=== PATIENT | female | born 1930 | race Hispanic/Latino ===

== ENCOUNTER 2017-11-04 18:55 | Inpatient (IN) | payer MEDICARE ==
[2017-11-04 19:19] VITALS: BMI 28.3
--- NOTE | 2017-11-04 19:42 | ED PDOC ---
Arrival/HPI - General Chief Complaint: Chest Pain Time Seen by Provider: 11/04/17 19:07 Historian: Patient - History of Present Illness Narrative History of Present Illness (Text): you were treated in the ED today for cad/mi hx with coumadin use, having dizziness and generalized chest pain for 1 day but otherwise without any nausea/ vomiting/headache/dizziness/difficulty breathing/abdomen pain/numbness/tingling/ loss of limb function/pain with urination/travel/prior blood clots/cancer hx 11/04/17 19:42 Time/Duration: 24 hours Symptom Onset: Gradual Symptom Course: Intermittent Quality: Aching Severity Level: 1 Activities at Onset: Rest Context: Sitting Past Medical History - Provider Review Nursing Documentation Reviewed: Yes - Travel History Have you recently traveled outside [place] w/in the past 3 mons?: No - Infectious Disease Hx of Infectious Diseases: None - Cardiac Hx Circulatory Problems: Yes Hx Hypertension: Yes Hx Pacemaker: No - Hematological/Oncological Hx Blood Transfusions: No - Musculoskeletal/Rheumatological Hx Musculoskeletal Disorders: Yes - Gastrointestinal Hx Gastroesophageal Reflux: Yes - Psychiatric Hx Substance Use: No - Surgical History Other/Comment: IVC filter rt leg - Anesthesia Hx Anesthesia: Yes Hx Anesthesia Reactions: No Hx Malignant Hyperthermia: No Family/Social History - Physician Review Nursing Documentation Reviewed: Yes Family/Social History: No Known Family HX Smoking Status: Never Smoked Hx Alcohol Use: No Hx Substance Use: No Allergies/Home Meds Allergies/Adverse Reactions: Allergies No Known Allergies Allergy (Verified 07/19/14 12:32) Home Medications: Home Meds Medication Instructions Recorded Confirmed Travoprost [Travatan 2.5 ml] 1 drop OU DAILY 07/19/14 11/04/17 Vitamin D 2,000 iu PO DAILY 07/19/14 11/04/17 Warfarin [Coumadin] 5 mg PO DAILY 07/19/14 11/04/17 Omeprazole 20 mg PO DAILY 11/04/17 11/04/17 Pravastatin Sodium [Pravachol] 10 mg PO DAILY 11/04/17 11/04/17 Review of Systems - Review of Systems Constitutional: Normal Eyes: Normal ENT: Normal Respiratory: Normal Cardiovascular: Chest Pain Gastrointestinal: Normal Genitourinary Female: Normal Musculoskeletal: Normal Skin: Normal Neurological: Dizziness Endocrine: Normal Hemo/Lymphatic: Normal Psychiatric: Normal Physical Exam Vital Signs Reviewed: Yes Vital Signs Temp Pulse Resp BP Pulse Ox 11/04/17 21:50 98.1 F 174/68 H 11/04/17 19:30 160/58 H 11/04/17 19:13 73 16 98 Temperature: Afebrile Pulse: Regular Respiratory Rate: Normal Appearance: Positive for: Well-Appearing, Non-Toxic, Comfortable Pain Distress: None Mental Status: Positive for: Alert and Oriented X 3 - Systems Exam Head: Present: Atraumatic, Normocephalic Pupils: Present: PERRL Extroacular Muscles: Present: EOMI Conjunctiva: Present: Normal Ears: Present: Normal Mouth: Present: Moist Mucous Membranes Pharnyx: Present: Normal Nose (External): Present: Atraumatic Nose (Internal): Present: Normal Inspection Neck: Present: Normal Range of Motion Respiratory/Chest: Present: Clear to Auscultation, Good Air Exchange Cardiovascular: Present: Regular Rate and Rhythm Abdomen: No: Tenderness, Distention, Normal Bowel Sounds, Peritoneal Signs, Rebound, Guarding, McBurney's Point Tender, Rovsing's Sign Present, Hernias, Feeding Tubes, Ostomy Tubes, Mass/Organomegaly, Scars, Other Back: Present: Normal Inspection Upper Extremity: Present: Normal Inspection Lower Extremity: Present: Normal Inspection Neurological: Present: GCS=15, CN II-XII Intact, Speech Normal, Motor Func Grossly Intact Skin: Present: Warm, Normal Color Psychiatric: Present: Alert, Oriented x 3, Normal Insight, Normal Concentration Medical Decision Making ED Course and Treatment: you were treated in the ED today for cad/mi hx with coumadin use right lower ext ?, having dizziness with some positional changes and generalized chest pain for off and on somewhat chronically and saw Dr. Mccray but otherwise without any nausea/vomiting/headache/dizziness/difficulty breathing/abdomen pain/numbness/ tingling/loss of limb function/pain with urination. You were otherwise breathing easily, smiling and talking with your friend, good strength/sensation , clear lungs, no abdomen tenderness, skin pink, no fever temp 98.1, stable heart rate 73, stable breathing rate 16, excellent oxygen level 98% room air, elevated blood pressure 174/68 which we recommend repeat in 2-3 days primary care office to determine further treatment, you have blood tests no infection count 4.4, stable blood level hemoglobin 13/platelets 208, stable chemistry, heart blood test less than 0.01 negative, INR 2.44, urine test moderate leukocytes without pain with urination, radiology ct head no acute and chest xray mild vascular markings, ECG normal sinus rhythm, held aspirin as CT head pending, observation done in the ED with dizziness still and thus will admit for observation. 11/04/17 20:36 11/04/2017 21:[address] IMPRESSION: No acute intracranial abnormality. Dictator: Gabrielle Lancaster MD 11/04/17 21:35 11/04/17 21:44 11/04/17 21:46 11/04/17 21:59 d/w hospitalist Dr. Lang who stated consult Dr. Mccray and can admit to telemetry, Dr. Gandara covering and stated can put a consult in for the am and admit for observation at this time. Reassessment Condition: Re-examined, Improved - Lab Interpretations Lab Results: 11/04/17 20:00 11/04/17 20:00 Lab Results 11/04/17 20:41: Urine Color Yellow, Urine Appearance Sl cloudy, Urine pH 7.0, Ur Specific [place] 1.015, Urine Protein Negative, Urine Glucose (UA) Negative, Urine Ketones Negative, Urine Blood Negative, Urine Nitrate Negative, Urine Bilirubin Negative, Urine Urobilinogen 0.2, Ur Leukocyte Esterase Moderate H, Urine RBC Negative, Urine WBC 15 - 20, Ur Epithelial Cells 10 - 12, Urine Bacteria Mod 11/04/17 20:00: Sodium 143, Potassium 4.3, Chloride 106, Carbon Dioxide 27, Anion Gap 14, BUN 16, Creatinine 0.7, Est GFR ( Amer) > 60, Est GFR (Non- Af Amer) > 60, Random Glucose 126 H, Calcium 9.1, Magnesium 2.0, Total Bilirubin 0.7, AST 29, ALT 29, Alkaline Phosphatase 70, Lactate Dehydrogenase 590, Total Creatine Kinase 61, Troponin I < 0.01, NT-Pro-B Natriuret Pep 94.4, Total Protein 7.0, Albumin 4.1, Globulin 2.9, Albumin/Globulin Ratio 1.4 11/04/17 20:00: PT 28.3 H, INR 2.44 H, APTT 34.1 11/04/17 20:00: WBC 4.4 L, RBC 4.50, Hgb 13.1, Hct 38.6, MCV 85.8, MCH 29.1, MCHC 33.9, RDW 13.0, Plt Count 208, MPV 10.5, Gran % 73.9 H, Lymph % (Auto) 18.3 L, [place] % (Auto) 6.7 H, Eos % (Auto) 0.9 L, Baso % (Auto) 0.2, Gran # 3.22 , Lymph # (Auto) 0.8 L, [place] # (Auto) 0.3, Eos # (Auto) 0.0, Baso # (Auto) 0.01 I have reviewed the lab results: Yes - RAD Interpretation Radiology Orders: 11/04/17 19:37 HEAD W/O CONTRAST [CT] Stat CHEST PORTABLE [RAD] Stat Optical Manager: ED Physician (cxr mild vascular markings; similar 08/22/14) - EKG Interpretation Interpreted by ED Physician: Yes (NSR, RBBB) Type: 12 lead EKG - Medication Orders Current Medication Orders: Discontinued Medications Meclizine HCl (Antivert) 25 mg PO STAT STA Stop: 11/04/17 21:46 Disposition/Present on Arrival - Present on Arrival Any Indicators Present on Arrival: No History of DVT/PE: No History of Uncontrolled Diabetes: No Urinary Catheter: No History of Decub. Ulcer: No History Surgical Site Infection Following: None - Disposition Have Diagnosis and Disposition been Completed?: Yes Diagnosis: Dizziness Disposition: HOSPITALIZED Disposition Time: 21:50 Patient Plan: Admission, Telemetry Patient Problems: Current Active Problems Problem Status Onset Dizziness Acute Condition: STABLE Referrals: Miguelina Harmon MD [Primary Care Provider] - Follow up with primary Forms: [employer] (Spanish)
[2017-11-04 20:21] LABS: BASO # 0.01 K/mm3 (0.0-2.0); BASO % 0.2 % (0.0-3.0); EOS % 0.9 % (1.5-5.0); GRAN # 3.22 (1.4-6.5); GRAN % 73.9 % (50.0-68.0); HEMOGLOBIN 13.1 g/dL (12.0-16.0); LYMPH # 0.8 (1.2-3.4); LYMPH % 18.3 % (22.0-35.0); MEAN CELL VOLUME 85.8 fl (80.0-105.0); MEAN CORPUSCULAR HEMOGLOBIN 29.1 pg (25.0-35.0); MEAN CORPUSCULAR HGB CONC 33.9 g/dl (31.0-37.0); MEAN PLATELET VOLUME 10.5 fl (7.0-11.0); MONO # 0.3 (0.1-0.6); MONO % 6.7 % (1.0-6.0); RBC 4.5 10^6/uL (3.5-6.1); WHITE BLOOD COUNT 4.4 10^3/ul (4.5-11.0)
[2017-11-04 20:25] LABS: ALB/GLOB RATIO 1.4 (1.1-1.8); ALBUMIN 4.1 g/dL (3.0-4.8); CALCIUM 9.1 mg/dL (8.4-10.5); GFR AFRICAN-AMERICAN > 60; GFR NON-AFRICAN AMERICAN > 60; INR 2.44 (0.93-1.08); PARTIAL THROMBOPLASTIN TIME 34.1 Seconds (25.1-36.5); PROTHROMBIN TIME 28.3 SECONDS (9.4-12.5)
[2017-11-04 20:28] LABS: ALT/SGPT 29 U/L (7-56); AST/SGOT 29 U/L (14-36); BLOOD UREA NITROGEN 16 mg/dL (7-21)
[2017-11-04 20:35] LABS: B-TYPE NATRIURETIC PEPTIDE 94.4 pg/mL (0-450); TROPONIN I < 0.01 ng/mL
[2017-11-04 21:13] LABS: URINE BILIRUBIN NEGATIVE (NEGATIVE); URINE BLOOD NEGATIVE (NEGATIVE); URINE GLUCOSE (UA) NEGATIVE (NEGATIVE); URINE LEUKOCYTE ESTERASE MODERATE Leu/uL (NEGATIVE); URINE PROTEIN NEGATIVE mg/dL (<30 mg/dL); URINE UROBILINOGEN 0.2 E.U./dL (<1 E.U./dL)
[2017-11-04 21:16] LABS: URINE APPEARANCE SL CLOUDY (CLEAR); URINE COLOR YELLOW (YELLOW)
[2017-11-04 21:23] LABS: URINE BACTERIA MOD (NEG); URINE RBC NEGATIVE /hpf (0-2); URINE WBC 15 - 20 /hpf (0-6)
--- NOTE | 2017-11-04 21:26 | CT ---
EXAM: CT Head Without Intravenous Contrast EXAM DATE/TIME: 11/04/2017 7:37 PM CLINICAL HISTORY: 87 years old, female; Signs and symptoms; Dizziness; Additional info: 87yof, with dizziness TECHNIQUE: Axial computed tomography images of the head/brain without intravenous contrast. All CT scans at this facility use at least one of these dose optimization techniques: automated exposure control; mA and/or kV adjustment per patient size (includes targeted exams where dose is matched to clinical indication); or iterative reconstruction. Coronal and sagittal reformatted images were created and reviewed. COMPARISON: CT - HEAD W/O CONTRAST 2015-06-14 13:38 FINDINGS: Brain: There is mild prominence of sulci gyri and ventricles. There is no midline shift. There is decreased attenuation in periventricular white matter. There are old small lacunar infarcts in the basal ganglia. There is small punctate calcifications unchanged. There are no focal masses. There are no focal hemorrhages. Layton-white differentiation is visualized. Ventricles: See above Bones: Cranial vault is intact. Soft tissues: unremarkable Sinuses: There is no acute sinusitis. Ears and mastoids: Middle ears and mastoids are unremarkable. Orbits: Orbital contents are unremarkable. IMPRESSION: No acute intracranial abnormality
--- NOTE | 2017-11-04 22:53 | CP.PCM.HP ---
<Tristen Arroyo - Last Filed: 11/05/17 03:11> History of Present Illness - History of Present Illness History of Present Illness: 87 year old female with a past medical history of [place] x2(1992 and 2007), Pulmonary embolus( on Coumadin), DVT, and nephrolithiasis who comes in today complaining of dizziness that began this afternoon around 4p.m. The patient went for a check-up at Dr. Mccray's office and then returned home when she began to feel dizzy. She describes the sensation as feeling like she would lose her balance when walking. She also admits to the dizziness being more pronounced upon walking to the restroom. She reports also having some chest pain in association with the dizziness. It located on the left side of her chest with some radiation to the mid back. She describes it as a throbbing pain and rates it 5/10 when she has symptoms. She reports similar symptoms when she had her DVT and PE in the past which is why she ultimately came to the emergency room department. She denies losing consciousness or hitting her head. She denies any recent cold, abdominal pain, palpitations, fevers, cough, or chest pain at the time of the encounter, or any other complaints. PMD: Dr. Baker Cardiology: Dr. Mccray Past medical history: MIx2 (1992 and 2007), Pulmonary embolus, DVT, nephrolithiaisis Surgical history :Denies Allergies: Denies Medications: Coumadin 5mg PO Daily Social history: Former smoker (quit 40 years ago). Denies alcohol or illicit drug use. Lives alone in [place]. Present on Admission - Present on Admission Any Indicators Present on Admission: No Review of Systems - Constitutional Constitutional: absent: Daytime Sleepiness, Frequent Falls, Headache, Night Sweats, Snoring, Weakness - EENT Eyes: absent: Blurred Vision, Change in Vision, Discharge, Loss of Peripheral Vision, Sees Flashes, Loss of Vision Ears: Disequilibrium, Dizziness. absent: Ear Discharge Nose/Mouth/Throat: absent: Nasal Congestion, Nose Pain, Bleeding Gums, Dysphagia , Mouth Pain, Facial Pain - Cardiovascular Cardiovascular: Chest Pain. absent: Diaphoresis, Irregular Heart Rhythm, Leg Edema, Orthopnea, Palpitations, Paroxysmal Nocturnal Dyspnea, Pedal Edema, Syncope - Respiratory Respiratory: absent: Cough, Hemoptysis, Snoring, Chest Congestion, Change in Mucous Color - Gastrointestinal Gastrointestinal: absent: Abdominal Pain, Belching, Loose Stools, Melena, Nausea , Vomiting - Genitourinary Genitourinary: absent: Change in Urinary Stream, Nocturia, Urinary Hesitance - Musculoskeletal Musculoskeletal: absent: Arthralgias, Atrophy, Myalgias, Tingling - Integumentary Integumentary: absent: Bleeding Lesions, Rash, Sores, Swelling - Neurological Neurological: Disequilibrium, Dizziness. absent: Abnormal Hearing, Loss of Vision, Restless Legs, Syncope, Tingling, Tremor, Weakness - Psychiatric Psychiatric: absent: Anhedonia, Anxiety, Hopelessness, Panic Attacks - Endocrine Endocrine: absent: Polydipsia, Polyphagia, Polyuria - Hematologic/Lymphatic Hematologic: absent: Easy Bleeding, Easy Bruising Past Patient History - Infectious Disease Hx of Infectious Diseases: None - Past Social History Smoking Status: Never Smoked - CARDIAC Hx Circulatory Problems: Yes Hx Hypertension: Yes Hx Pacemaker: No - HEMATOLOGICAL/ONCOLOGICAL Hx Blood Transfusions: No - MUSCULOSKELETAL/RHEUMATOLOGICAL Hx Musculoskeletal Disorders: Yes - GASTROINTESTINAL Hx Gastroesophageal Reflux: Yes - PSYCHIATRIC Hx Substance Use: No - SURGICAL HISTORY Other/Comment: IVC filter - ANESTHESIA Hx Anesthesia: Yes Hx Anesthesia Reactions: No Hx Malignant Hyperthermia: No Meds Allergies/Adverse Reactions: Allergies Allergy/AdvReac Type Severity Reaction Status Date / Time No Known Allergies Allergy Verified 07/19/14 12:32 Physical Exam - Head Exam Head Exam: ATRAUMATIC, NORMAL INSPECTION, NORMOCEPHALIC - Eye Exam Eye Exam: EOMI, Normal appearance, PERRL. absent: Periorbital swelling, Periorbital tenderness Pupil Exam: NORMAL ACCOMODATION, PERRL. absent: Irregular, Unequal - ENT Exam ENT Exam: Mucous Membranes Moist, Normal Oropharynx - Neck Exam Neck exam: Negative for: Lymphadenopathy, Thyromegaly - Respiratory Exam Respiratory Exam: Clear to Auscultation Bilateral, NORMAL BREATHING PATTERN. absent: Chest Wall Tenderness, Prolonged Expiratory Phase, Respiratory Distress - Cardiovascular Exam Cardiovascular Exam: REGULAR RHYTHM, RRR, +S1, +S2. absent: Gallop, Rubs - GI/Abdominal Exam GI & Abdominal Exam: Normal Bowel Sounds, Soft. absent: Hypoactive Bowel Sounds , Organomegaly, Tenderness - Extremities Exam Extremities exam: Positive for: normal inspection. Negative for: pedal edema - Back Exam Back exam: NORMAL INSPECTION. absent: CVA tenderness (L), CVA tenderness (R), paraspinal tenderness - Neurological Exam Neurological exam: Alert, CN II-XII Intact, Oriented x3 - Psychiatric Exam Psychiatric exam: Normal Affect, Normal Mood - Skin Skin Exam: Dry, Intact, Normal Color Results - Vital Signs Recent Vital Signs: Last Vital Signs Temp 98.1 F 11/04/17 21:50 Pulse 73 11/04/17 19:13 Resp 16 11/04/17 19:13 BP 147/79 11/04/17 22:01 Pulse Ox 98 11/04/17 19:13 - Labs Result Diagrams: 11/04/17 20:00 11/04/17 20:00 Assessment & Plan - Assessment and Plan (Free Text) Assessment: 87 year old female with a past medical history of [place] x2(1992 and 2007), Pulmonary embolus( on Coumadin), DVT, and nephrolithiasis who is being admitted for dizziness and chest pain r/o acs. Plan: 1.Chest pain r/o acs -EKG: NSR, RBBB. No ST-T changes -Chest xray: Negative -Troponin (-)x1. Trend troponins. -Hemoglobin A1C ordered. Will f/u with results. -Cardiology consulted. Help appreciated. -Lipid panel ordered. Will f/u with results. -TSH ordered. Will f/u with results. 2. Dizziness Meclizine STAT given in the E.D. -Head ct: negative -Orthostatics ordered .Will f/u with results. -Neurology consulted. Help appreciated. -Echo ordered .Will f/u with results. 3. hx of DVT/ PE -Continue Coumadin -Coag's ordered for the A.M. -INR 2.44 upon admission. 4.UTI -U/A: Moderate Leukocyte Esterase -Rocephin IV Daily -Urine cultures ordered. Will f/u with results. PPX -Protonix -Patient currently on Coumadin. <Jazmyn Lang - Last Filed: 11/05/17 03:16> Results - Vital Signs Recent Vital Signs: Last Vital Signs Temp 98.3 F 11/05/17 00:01 Pulse 51 L 11/05/17 02:00 Resp 20 11/05/17 00:01 BP 175/63 H 11/05/17 00:01 Pulse Ox 98 11/05/17 00:01 - Labs Result Diagrams: 11/04/17 20:00 11/04/17 20:00 Labs: Laboratory Results - last 24 hr 11/05/17 02:10 Troponin I < 0.01 Attending/Attestation - Attestation I have personally seen and examined this patient.: Yes I have fully participated in the care of the patient.: Yes I have reviewed all pertinent clinical information: Yes Notes (Text): 11/05/17 03:14 Patient seen with resident by bedside. Agree with assessment and plan of treatment.
[2017-11-05 06:38] LABS: BASO # 0.01 K/mm3 (0.0-2.0); BASO % 0.2 % (0.0-3.0); EOS % 0.8 % (1.5-5.0); GRAN # 2.9 (1.4-6.5); GRAN % 61.2 % (50.0-68.0); HEMOGLOBIN 12.7 g/dL (12.0-16.0); LYMPH # 1.4 (1.2-3.4); MEAN CELL VOLUME 84.5 fl (80.0-105.0); MEAN CORPUSCULAR HEMOGLOBIN 28.5 pg (25.0-35.0); MEAN CORPUSCULAR HGB CONC 33.8 g/dl (31.0-37.0); MEAN PLATELET VOLUME 10.7 fl (7.0-11.0); MONO # 0.4 (0.1-0.6); MONO % 7.8 % (1.0-6.0); RBC 4.45 10^6/uL (3.5-6.1); RED CELL DISTRIBUTION WIDTH 12.9 % (11.5-14.5); WHITE BLOOD COUNT 4.7 10^3/ul (4.5-11.0)
[2017-11-05 06:56] LABS: INR 2.51 (0.93-1.08); PROTHROMBIN TIME 29.4 SECONDS (9.4-12.5)
[2017-11-05 07:17] LABS: ALBUMIN 3.6 g/dL (3.0-4.8); BLOOD UREA NITROGEN 14 mg/dL (7-21); CALCIUM 8.9 mg/dL (8.4-10.5); GFR AFRICAN-AMERICAN > 60; GFR NON-AFRICAN AMERICAN > 60
[2017-11-05 07:18] LABS: ALB/GLOB RATIO 1.3 (1.1-1.8); ALT/SGPT 21 U/L (7-56); AST/SGOT 22 U/L (14-36); HDL CHOLESTEROL 39 mg/dL (29-60); LDL CHOLESTEROL 90 mg/dL (0-129)
--- NOTE | 2017-11-05 08:43 | RAD ---
HISTORY: 87yoF with chest pain COMPARISON: 08/22/2014 FINDINGS: LUNGS: Ill-defined opacity in right lung apex. Not evident on prior examination. Consider further evaluation with either apical lordotic radiography or CT examination. No infiltrate. PLEURA: No significant pleural effusion identified, no pneumothorax apparent. CARDIOVASCULAR: Normal. OSSEOUS STRUCTURES: No significant abnormalities. VISUALIZED UPPER ABDOMEN: Normal. OTHER FINDINGS: None. IMPRESSION: Small ill-defined opacity in right lung apex. Recommend further radiographic evaluation with either apical lordotic chest radiography or computed tomography.
[2017-11-05] MEDS: cycloSPORINE 0.05 % Opth Emulsion UD OU SCH ×2 (08:49→18:33)
[2017-11-05] MEDS ORDERED: Sodium Chloride 0.9% 1,000 ML IV SCH (09:45)
[2017-11-05] MEDS: cefTRIAXone 1 gm 1 GM/100 ML BAG IVPB SCH (10:57)
--- NOTE | 2017-11-05 11:11 | CP.PCM.CON ---
History of Present Illness - History of Present Illness History of Present Illness: Neurology Consultation Note: Mrs. White is an 87-year-old woman with a past medical history of CAD, [place] , DVT, PE (on coumadin), who presented with complaints of dizziness, light- headedness and chest pain. CT head showed a chronic right basal ganglia lacunar infarct. CTA of the head/neck showed right carotid bulb calcification, but not flow limiting. The vertebral and basilar arteries were patent. When I saw the patient, she was complaining of feeling that the room was moving backward. She had a slow nystagmus to the right. [place]the[place], non-focal exam. Review of Systems - Review of Systems All systems: reviewed and no additional remarkable complaints except Past Patient History - Infectious Disease Hx of Infectious Diseases: None - Past Social History Smoking Status: Never Smoked - CARDIAC Hx Circulatory Problems: Yes Hx Hypertension: Yes Hx Pacemaker: No - PULMONARY Hx Respiratory Disorders: No - NEUROLOGICAL Hx Neurological Disorder: No - HEENT Hx HEENT Problems: Yes Hx Cataracts: Yes Hx Glaucoma: Yes - RENAL Hx Kidney Stones: Yes - ENDOCRINE/METABOLIC Hx Endocrine Disorders: No - HEMATOLOGICAL/ONCOLOGICAL Hx Blood Transfusions: No - INTEGUMENTARY Hx Dermatological Problems: No - MUSCULOSKELETAL/RHEUMATOLOGICAL Hx Musculoskeletal Disorders: Yes - GASTROINTESTINAL Hx Gastroesophageal Reflux: Yes - GENITOURINARY/GYNECOLOGICAL Hx Genitourinary Disorders: No - PSYCHIATRIC Hx Substance Use: No - SURGICAL HISTORY Other/Comment: IVC filter - ANESTHESIA Hx Anesthesia: Yes Hx Anesthesia Reactions: No Hx Malignant Hyperthermia: No Meds Allergies/Adverse Reactions: Allergies Allergy/AdvReac Type Severity Reaction Status Date / Time No Known Allergies Allergy Verified 07/19/14 12:32 - Medications Medications: Current Medications Aspirin (Ecotrin) 81 mg PO DAILY [facility] Last Admin: 11/05/17 10:57 Dose: 81 mg Cyclosporine (Restasis) 0 ea OU Q12H MARTI Last Admin: 11/05/17 08:49 Dose: 1 ea Home Med (Home Med) 1 unit OU HS MARTI Ceftriaxone Sodium (Rocephin 1 Gram Ivpb) 1 gm in 100 mls @ 100 mls/hr IVPB DAILY [facility]ARTI PRN Reason: Protocol Last Admin: 11/05/17 10:57 Dose: 100 mls/hr Sodium Chloride (Sodium Chloride 0.9%) 1,000 mls @ 75 mls/hr IV .[id number] [facility] Meclizine HCl (Antivert) 25 mg PO BID [facility] Last Admin: 11/05/17 10:57 Dose: 25 mg Pantoprazole Sodium (Protonix Inj) 40 mg IVP DAILY [facility] Last Admin: 11/05/17 10:57 Dose: 40 mg Warfarin Sodium (Coumadin) 5 mg PO DAILY [facility] PRN Reason: Protocol Last Admin: 11/05/17 10:57 Dose: 5 mg Physical Exam - Neurological Exam Neurological exam: Alert, CN II-XII Intact, Normal Gait, Oriented x3, Reflexes Normal Additional comments: Slow phase nystagmus to the right. Results - Vital Signs Recent Vital Signs: Last Vital Signs Temp 98.3 F 11/05/17 06:00 Pulse 55 L 11/05/17 06:00 Resp 20 11/05/17 06:00 BP 123/56 L 11/05/17 06:00 Pulse Ox 94 L 11/05/17 06:00 - Labs Result Diagrams: 11/05/17 06:00 11/05/17 06:00 Labs: Laboratory Results - last 24 hr 11/05/17 11/05/17 11/05/17 02:10 06:00 06:00 WBC RBC Hgb Hct MCV MCH MCHC RDW Plt Count MPV Gran % Lymph % (Auto) [place] % (Auto) Eos % (Auto) Baso % (Auto) Gran # Lymph # (Auto) [place] # (Auto) Eos # (Auto) Baso # (Auto) PT INR Sodium 143 Potassium 3.7 Chloride 106 Carbon Dioxide 28 Anion Gap 13 BUN 14 Creatinine 0.7 Est GFR ( Amer) > 60 Est GFR (Non-Af Amer) > 60 Random Glucose 89 Calcium 8.9 Phosphorus 2.8 Magnesium 2.1 Total Bilirubin 0.5 AST 22 ALT 21 Alkaline Phosphatase 66 Troponin I < 0.01 Total Protein 6.5 Albumin 3.6 Globulin 2.8 Albumin/Globulin Ratio 1.3 Triglycerides 120 Cholesterol 167 LDL Cholesterol Direct 90 HDL Cholesterol 39 TSH 3rd Generation 2.43 11/05/17 11/05/17 11/05/17 06:00 06:00 07:50 WBC 4.7 RBC 4.45 Hgb 12.7 Hct 37.6 MCV 84.5 MCH 28.5 MCHC 33.8 RDW 12.9 Plt Count 197 MPV 10.7 Gran % 61.2 Lymph % (Auto) 30.0 [place] % (Auto) 7.8 H Eos % (Auto) 0.8 L Baso % (Auto) 0.2 Gran # 2.90 Lymph # (Auto) 1.4 [place] # (Auto) 0.4 Eos # (Auto) 0.0 Baso # (Auto) 0.01 PT 29.4 H INR 2.51 H Sodium Potassium Chloride Carbon Dioxide Anion Gap BUN Creatinine Est GFR ( Amer) Est GFR (Non-Af Amer) Random Glucose Calcium Phosphorus Magnesium Total Bilirubin AST ALT Alkaline Phosphatase Troponin I < 0.01 Total Protein Albumin Globulin Albumin/Globulin Ratio Triglycerides Cholesterol LDL Cholesterol Direct HDL Cholesterol TSH 3rd Generation Assessment & Plan (1) Vertigo Assessment and Plan: I recommend starting Valium 2 mg Q12 PRN vertigo. I discussed vestibular rehab with PT. Will follow official CTA result, but there was not any clear VBI based on my review. Continue PT/OT, cardiac and pulmonary work-up for the chest pain. Thank you. Status: Acute Priority: Medium
--- NOTE | 2017-11-05 14:48 | CP.PCM.PN ---
<Mely Tovar - Last Filed: 11/05/17 14:36> Subjective - Date & Time of Evaluation Date of Evaluation: 11/05/17 Time of Evaluation: 10:00 - Subjective Subjective: Mely Tovar, PGY1, Progress Note for Dr Nicholson: Patient seen and examined at bedside. No acute events overnight. Pt reports dizziness upon getting up from bed, reports improvement since yesterday. Denies cough, cold, nasal congestion/ear ache, fevers, chills, nausea, vomiting, abdominal pain, diarrhea, leg swelling. Objective - Vital Signs/Intake and Output Vital Signs (last 24 hours): Temp Pulse Resp BP Pulse Ox 98 F 55 L 18 160/79 H 94 L 11/05/17 11:47 11/05/17 11:47 11/05/17 11:47 11/05/17 11:47 11/05/17 06:00 Intake and Output: 11/05/17 11/05/17 06:59 18:59 Intake Total 120 420 Output Total 400 800 Balance -280 -380 - Medications Medications: Current Medications Aspirin (Ecotrin) 81 mg PO DAILY [facility] Last Admin: 11/05/17 10:57 Dose: 81 mg Cyclosporine (Restasis) 0 ea OU Q12H [facility] Last Admin: 11/05/17 08:49 Dose: 1 ea Diazepam (Valium) 2 mg PO Q12 [facility] PRN Reason: Protocol Last Admin: 11/05/17 12:16 Dose: 2 mg Home Med (Home Med) 1 unit OU HS [facility] Ceftriaxone Sodium (Rocephin 1 Gram Ivpb) 1 gm in 100 mls @ 100 mls/hr IVPB DAILY [facility] PRN Reason: Protocol Last Admin: 11/05/17 10:57 Dose: 100 mls/hr Sodium Chloride (Sodium Chloride 0.9%) 1,000 mls @ 75 mls/hr IV .[id number] [facility] Last Admin: 11/05/17 11:13 Dose: 75 mls/hr Pantoprazole Sodium (Protonix Ec Tab) 40 mg PO ACB [facility] Warfarin Sodium (Coumadin) 5 mg PO DAILY [facility] PRN Reason: Protocol Last Admin: 11/05/17 10:57 Dose: 5 mg - Labs Labs: 11/05/17 06:00 11/05/17 06:00 PT 29.4 SECONDS (9.4-12.5) H 11/05/17 06:00 INR 2.51 (0.93-1.08) H 11/05/17 06:00 APTT 34.1 Seconds (25.1-36.5) 11/04/17 20:00 - Constitutional Appears: Non-toxic, No Acute Distress - Head Exam Head Exam: ATRAUMATIC, NORMOCEPHALIC - Eye Exam Eye Exam: EOMI, Nystagmus, PERRL. absent: Conjunctival injection, Scleral icterus Pupil Exam: NORMAL ACCOMODATION, PERRL. absent: Fixed, Irregular, Miosis, Unequal - ENT Exam ENT Exam: Mucous Membranes Moist - Neck Exam Neck Exam: Full ROM - Respiratory Exam Respiratory Exam: Clear to Ausculation Bilateral, NORMAL BREATHING PATTERN. absent: Accessory Muscle Use, Chest Wall Tenderness, Prolonged Expiratory Phase , Rales, Rhonchi, Wheezes, Respiratory Distress, Stridor - Cardiovascular Exam Cardiovascular Exam: RRR, +S1, +S2. absent: Murmur - GI/Abdominal Exam GI & Abdominal Exam: Soft, Normal Bowel Sounds. absent: Distended, Firm, Guarding, Rigid, Tenderness, Mass, Organomegaly, Pulsatile Mass, Rebound - Extremities Exam Extremities Exam: Normal Inspection. absent: Calf Tenderness, Pedal Edema - Back Exam Back Exam: NORMAL INSPECTION - Neurological Exam Neurological Exam: Alert, Awake, Oriented x3 - Psychiatric Exam Psychiatric exam: Normal Affect, Normal Mood - Skin Skin Exam: Dry, Normal Color, Warm Assessment and Plan - Assessment and Plan (Free Text) Assessment: 87 year old female with a past medical history of VT x2(1992 and 2007), Pulmonary embolus (on Coumadin), DVT, and nephrolithiasis, admitted for dizziness and chest pain r/o acs. 1.Chest pain r/o acs -EKG: NSR, RBBB. No ST-T changes -Chest xray: Negative -Troponin (-)x3. -Hemoglobin A1C 5.7. -TSH normal. -LDL 90, triglycerides 120 -Cardiology consulted. Help appreciated. 2. Dizziness: 2/2 orthostatic vs vestibular neuritis vs BPPV Meclizine STAT given in the E.D. -Head ct: negative -Orthostatics positive. -Valium prn -Neurology consulted. Help appreciated. Recommend vesitbular rehab -Echo prelim read shows EF 59%. Will f/u with results. -NS@75 3. hx of DVT/ PE -Continue Coumadin -INR 2.51 4.UTI -U/A: Moderate Leukocyte Esterase -Rocephin IV Daily -Urine cultures ordered. Will f/u with results. PPX -Protonix -Patient currently on Coumadin. Case seen and discussed with Dr Nicholson. Mely Tovar, PGY1 <Samantha Nicholson - Last Filed: 11/05/17 19:00> Objective - Vital Signs/Intake and Output Vital Signs (last 24 hours): Temp Pulse Resp BP Pulse Ox 97.7 F 56 L 18 133/63 94 L 11/05/17 17:47 11/05/17 17:47 11/05/17 17:47 11/05/17 17:47 11/05/17 06:00 - Medications Medications: Current Medications Aspirin (Ecotrin) 81 mg PO DAILY [facility] Last Admin: 11/05/17 10:57 Dose: 81 mg Cyclosporine (Restasis) 0 ea OU Q12H [facility] Last Admin: 11/05/17 08:49 Dose: 1 ea Diazepam (Valium) 2 mg PO Q12 [facility] PRN Reason: Protocol Last Admin: 11/05/17 12:16 Dose: 2 mg Home Med (Home Med) 1 unit OU HS [facility] Ceftriaxone Sodium (Rocephin 1 Gram Ivpb) 1 gm in 100 mls @ 100 mls/hr IVPB DAILY [facility] PRN Reason: Protocol Last Admin: 11/05/17 10:57 Dose: 100 mls/hr Sodium Chloride (Sodium Chloride 0.9%) 1,000 mls @ 75 mls/hr IV .[id number] [facility] Last Admin: 11/05/17 11:13 Dose: 75 mls/hr Pantoprazole Sodium (Protonix Ec Tab) 40 mg PO ACB [facility] Warfarin Sodium (Coumadin) 5 mg PO DAILY [facility] PRN Reason: Protocol Last Admin: 11/05/17 10:57 Dose: 5 mg - Labs Labs: PT 29.4 SECONDS (9.4-12.5) H 11/05/17 06:00 INR 2.51 (0.93-1.08) H 11/05/17 06:00 APTT 34.1 Seconds (25.1-36.5) 11/04/17 20:00 Attending/Attestation - Attestation I have personally seen and examined this patient.: Yes I have fully participated in the care of the patient.: Yes I have reviewed all pertinent clinical information, including history, physical exam and plan: Yes Notes (Text): 11/05/17 18:26 Attending note; Patient seen and examined with the resident. Patient is a 87 year old female with a past medical history of VT x2(1992 and 2007), Pulmonary embolus (on Coumadin), DVT, and nephrolithiasis, admitted for dizziness and chest pain r/o acs. Currently patient is pain-free. Cardiac enzymes negative. Cardiology evaluation requested. Patient with dizziness; started on meclizine. CT head is negative. Neurology evaluation requested. Physical therapy evaluation requested for vestibular therapy. On Coumadin for history pulmonary embolus; INR is therapeutic. Case discussed with PMD in detail. Upon discharge the patient will follow-up with PMD . 11/05/17 19:00
--- NOTE | 2017-11-05 16:35 | CON ---
DATE: 11/05/2017 HISTORY OF PRESENT ILLNESS: This is an 87-year-old woman known to me, admitted through the emergency room yesterday when she complained of dizziness, unsteadiness and a brief episode of chest discomfort. She was concerned for a possible blood clot as she has a history of a pulmonary embolus in the past. The chest pain was not exertional. There was no shortness of breath, orthopnea, PND, syncope, vertigo, edema, claudication, fever, chills, cough, sputum production, hemoptysis, abdominal pain, nausea, vomiting, diarrhea, constipation, or melena. PAST MEDICAL HISTORY: Notable for coronary artery disease and remote myocardial infarction. She had a pulmonary embolus, DVT. She is on chronic warfarin. She has had kidney stones. She is a former smoker. A chest x-ray reveals an ill-defined density in her right apex. There is no history of rheumatic fever, congestive heart failure, angina, arrhythmia, diabetes or gout. MEDICATIONS: At the time of admission are warfarin 5 mg daily. ALLERGIES: NONE. SOCIAL HISTORY: She lives alone at home. She does not smoke, although she did in the remote past. She does not drink alcohol significantly. FAMILY HISTORY: Noncontributory. REVIEW OF SYSTEMS: A 10-point review of systems is otherwise unremarkable except as noted above. PHYSICAL EXAMINATION GENERAL: She is a well-developed elderly woman, lying in bed, in no acute distress. VITAL SIGNS: Notable for sinus rhythm to sinus bradycardia at 55-64 beats per minute. She is afebrile. Blood pressure 123/56. There is some mild orthostatic changes are noted. Respiratory rate 16-20, O2 sat 94%-100% on room air. HEENT: Reveals no neck vein distention, thyromegaly, or carotid bruits. Mucous membranes are moist. Conjunctivae are pink. NECK: Supple. LUNGS: Lung aguirre clear throughout. HEART: Revealed normal first and second heart sounds without murmur, gallop, rub or click. ABDOMEN: Soft, bowel sounds present. No mass, organomegaly, tenderness, rebound, guarding, CVA tenderness or palpable abdominal aortic aneurysm. EXTREMITIES: Revealed no cyanosis, clubbing, or edema. NEUROLOGIC: Awake, alert, and oriented. SKIN: Warm and dry. No rash or cellulitis. PSYCHIATRIC: Normal as to mood and affect. LABORATORY AND IMAGING: A chest x-ray reveals an ill-defined density in the right apex. Additional studies are recommended. EKG demonstrates regular sinus rhythm, right bundle-branch block, leftward axis, nonspecific ST-wave changes. A CT scan of the head reveals no acute intracranial abnormality. CBC is unremarkable. PT/INR 29.4 and 2.51, PTT 34.1. Electrolytes, BUN, creatinine, blood sugar, magnesium, LFTs all unremarkable. CK is 61. Three troponins are negative. BNP 94.4. TSH is normal. Urinalysis is noted. IMPRESSION: Barbie White is an 87-year-old woman with unsteadiness which is somewhat chronic, but worse yesterday with an episode of chest discomfort, who has no evidence of arrhythmia while on telemetry, has benign EKG and three negative troponins. She has mild postural hypotension of about 20 mmHg on standing. PLAN: She is going to undergo a neurologic evaluation. I will repeat her postural vital signs this morning. So, warfarin is therapeutic, we will continue warfarin. She is getting meclizine, aspirin, Protonix, Rocephin. An echocardiogram is ordered. Neuro signs have been checked. She can be out of bed. I will review her old records. I will follow along with you. I will make additional recommendations based on her clinical course. Jax Mccray MD MTDD
--- NOTE | 2017-11-05 17:09 | CT ---
PROCEDURE: CT Angiography of the neck and brain dated 11/05/2017 HISTORY: Dizziness; rule out VBI COMPARISON: Comparison with CT scan brain 11/04/2017. TECHNIQUE: Contiguous helical/ transaxial the the images of the neck and brain performed following injection of approximately 150 cc Omnipaque 350 contrast material during arteriographic phase of enhancement. Coronal and sagittal reformats or also generated. Radiation Dose - DLP: mGy-cm This CT exam was performed using one or more of the following dose reduction techniques: Automated exposure control, adjustment of the mA and/or kV according to patient size, and/or use of iterative reconstruction technique. . FINDINGS: Minor partially calcified atherosclerotic plaque seen along distal aspect of the transverse portion of the aortic arch/proximal descending aortic junction. The aorta is widely patent. Common origin of the right brachiocephalic and left common carotid arteries. The left vertebral artery also exhibits direct origin from the aortic arch. . RIGHT CAROTID ARTERIES: Common Carotid Artery: Normal. Carotid Bifurcation: There is a relatively large on crescentic appearing partially calcified atherosclerotic plaque seen at the proximal margin of the right internal carotid artery which results in approximately 50 percent diameter stenosis. Internal Carotid Artery:Normal. External Carotid Artery (proximal branches): Normal. LEFT CAROTID ARTERIES: Common Carotid Artery: Normal. Carotid Bifurcation: Minimal partially calcified plaque seen along the medial aspect left carotid bifurcation with no significant stenosis. . Internal Carotid Artery:Normal. External Carotid Artery (proximal branches): Normal. VERTEBRAL ARTERIES: Both vertebral arteries are patent right-sided which is only slightly larger in caliber/more dominant than the left side. origin of the left posterior cerebral artery. OTHER FINDINGS: The distal internal carotid arteries including the petrous cavernous and the supraclinoid segments are patent. Partially calcified atherosclerotic plaque seen along the cavernous segments bilaterally. There is mild asymmetry of the A1 segments right-sided which is larger in caliber/more dominant than the left side. The A2 segments appear relatively symmetric. The M1 and distal branches are patent. The distal branches appear relatively symmetric as well. No evidence of large intra cerebral aneurysm nor vascular malformation. Enlarged heterogeneous right lobe thyroid gland with what could represent a large dominant nodule measuring nearly 3 cm. Small low-attenuation focus also noted in the right isthmus. Followup thyroid ultrasound recommended for further evaluation. IMPRESSION: There is a calcified atherosclerotic plaque right proximal internal carotid artery resulting approximately 50 percent diameter stenosis. Left vertebral artery arises directly from the aortic arch. Mild partially calcified atherosclerotic plaque both cavernous carotid artery segments with no evidence of occlusion. Asymmetry of the A1 segments right-sided which is larger/more dominant than the left side. origin left posterior cerebral artery. Enlarged heterogeneous right lobe thyroid gland suspected dominant the condyle. There is also small low-attenuation focus of right parasagittal isthmus. Recommend follow-up ultrasound of the thyroid gland. Note made of pleural-based nodular density with calcifications.
[2017-11-05] MEDS ORDERED: TRAVOPROST OU SCH (22:00)
--- NOTE | 2017-11-05 22:25 | CARD ---
APPROVED REPORT EKG Measurement Heart [id number] <Conclusion> Normal sinus rhythm Right bundle branch block Minimal voltage criteria for LVH, may be normal variant Abnormal ECG
[2017-11-06 03:30] VITALS: RESP 20; O2SAT 96
[2017-11-06 06:35] LABS: BASO # 0.01 K/mm3 (0.0-2.0); BASO % 0.2 % (0.0-3.0); EOS # 0.1 (0.0-0.7); EOS % 1.4 % (1.5-5.0); GRAN # 3.02 (1.4-6.5); GRAN % 62.2 % (50.0-68.0); HEMOGLOBIN 12.9 g/dL (12.0-16.0); LYMPH # 1.4 (1.2-3.4); MEAN CELL VOLUME 85.3 fl (80.0-105.0); MEAN CORPUSCULAR HEMOGLOBIN 28.7 pg (25.0-35.0); MEAN CORPUSCULAR HGB CONC 33.7 g/dl (31.0-37.0); MEAN PLATELET VOLUME 10.7 fl (7.0-11.0); MONO # 0.4 (0.1-0.6); MONO % 8.2 % (1.0-6.0); RBC 4.49 10^6/uL (3.5-6.1); RED CELL DISTRIBUTION WIDTH 12.9 % (11.5-14.5); WHITE BLOOD COUNT 4.9 10^3/ul (4.5-11.0)
[2017-11-06 07:03] LABS: INR 2.43 (0.93-1.08); PROTHROMBIN TIME 28.4 SECONDS (9.4-12.5)
[2017-11-06 07:05] LABS: ALB/GLOB RATIO 1.3 (1.1-1.8); ALBUMIN 3.5 g/dL (3.0-4.8); ALT/SGPT 17 U/L (7-56); AST/SGOT 22 U/L (14-36); BLOOD UREA NITROGEN 13 mg/dL (7-21); CALCIUM 8.7 mg/dL (8.4-10.5); GFR AFRICAN-AMERICAN > 60; GFR NON-AFRICAN AMERICAN > 60
[2017-11-06] MEDS ORDERED: Pantoprazole 40 mg EC Tab PO SCH (07:30)
[2017-11-06] MEDS: cefTRIAXone 1 gm 1 GM/100 ML BAG IVPB SCH (10:40)
[2017-11-06] MEDS: cycloSPORINE 0.05 % Opth Emulsion UD OU SCH (10:41)
--- NOTE | 2017-11-06 11:34 | CP.PCM.DIS ---
<Mely Tovar - Last Filed: 11/06/17 12:44> Provider - Provider Date of Admission: 11/05/17 14:46 Attending physician: Samantha Nicholson MD Primary care physician: Miguelina Baker MD Consults: Cardio Shazia Story Time Spent in preparation of Discharge (in minutes): 60 Diagnosis - Discharge Diagnosis (1) Postural hypotension Status: Acute (2) Vestibular neuritis Status: Acute (3) Dizziness Status: Acute (4) Vertigo Status: Acute Priority: Medium (5) UTI (urinary tract infection) Status: Acute Hospital Course - Lab Results Lab Results: Most Recent Lab Values WBC 4.9 10^3/ul (4.5-11.0) 11/06/17 06:00 RBC 4.49 10^6/uL (3.5-6.1) 11/06/17 06:00 Hgb 12.9 g/dL (12.0-16.0) 11/06/17 06:00 Hct 38.3 % (36.0-48.0) 11/06/17 06:00 MCV 85.3 fl (80.0-105.0) 11/06/17 06:00 MCH 28.7 pg (25.0-35.0) 11/06/17 06:00 MCHC 33.7 g/dl (31.0-37.0) 11/06/17 06:00 RDW 12.9 % (11.5-14.5) 11/06/17 06:00 Plt Count 204 10^3/uL (120.0-450.0) 11/06/17 06:00 MPV 10.7 fl (7.0-11.0) 11/06/17 06:00 Gran % 62.2 % (50.0-68.0) 11/06/17 06:00 Lymph % (Auto) 28.0 % (22.0-35.0) 11/06/17 06:00 [place] % (Auto) 8.2 % (1.0-6.0) H 11/06/17 06:00 Eos % (Auto) 1.4 % (1.5-5.0) L 11/06/17 06:00 Baso % (Auto) 0.2 % (0.0-3.0) 11/06/17 06:00 Gran # 3.02 (1.4-6.5) 11/06/17 06:00 Lymph # (Auto) 1.4 (1.2-3.4) 11/06/17 06:00 [place] # (Auto) 0.4 (0.1-0.6) 11/06/17 06:00 Eos # (Auto) 0.1 (0.0-0.7) 11/06/17 06:00 Baso # (Auto) 0.01 K/mm3 (0.0-2.0) 11/06/17 06:00 PT 28.4 SECONDS (9.4-12.5) H 11/06/17 06:00 INR 2.43 (0.93-1.08) H 11/06/17 06:00 APTT 34.1 Seconds (25.1-36.5) 11/04/17 20:00 Sodium 144 mmol/L (132-148) 11/06/17 06:00 Potassium 4.0 mmol/L (3.6-5.0) 11/06/17 06:00 Chloride 107 mmol/L (98-107) 11/06/17 06:00 Carbon Dioxide 29 mmol/L (21-33) 11/06/17 06:00 Anion Gap 12 (10-20) 11/06/17 06:00 BUN 13 mg/dL (7-21) 11/06/17 06:00 Creatinine 0.8 mg/dl (0.7-1.2) 11/06/17 06:00 Est GFR ( Amer) > 60 11/06/17 06:00 Est GFR (Non-Af Amer) > 60 11/06/17 06:00 Random Glucose 89 mg/dL (70-110) 11/06/17 06:00 Hemoglobin A1c 5.7 % (4.2-6.5) 11/05/17 06:00 Calcium 8.7 mg/dL (8.4-10.5) 11/06/17 06:00 Phosphorus 2.8 mg/dL (2.5-4.5) 11/05/17 06:00 Magnesium 2.1 mg/dL (1.7-2.2) 11/05/17 06:00 Total Bilirubin 0.5 mg/dL (0.2-1.3) 11/06/17 06:00 AST 22 U/L (14-36) 11/06/17 06:00 ALT 17 U/L (7-56) 11/06/17 06:00 Alkaline Phosphatase 61 U/L (38-126) 11/06/17 06:00 Lactate Dehydrogenase 590 U/L (333-699) 11/04/17 20:00 Total Creatine Kinase 61 U/L (35-230) 11/04/17 20:00 Troponin I < 0.01 ng/mL 11/05/17 07:50 NT-Pro-B Natriuret Pep 94.4 pg/mL (0-450) 11/04/17 20:00 Total Protein 6.3 g/dL (5.8-8.3) 11/06/17 06:00 Albumin 3.5 g/dL (3.0-4.8) 11/06/17 06:00 Globulin 2.7 gm/dL 11/06/17 06:00 Albumin/Globulin Ratio 1.3 (1.1-1.8) 11/06/17 06:00 Triglycerides 120 mg/dL (35-160) 11/05/17 06:00 Cholesterol 167 mg/dL (130-200) 11/05/17 06:00 LDL Cholesterol Direct 90 mg/dL (0-129) 11/05/17 06:00 HDL Cholesterol 39 mg/dL (29-60) 11/05/17 06:00 Vitamin B12 364 pg/mL (239-931) 11/05/17 12:00 25-OH Vitamin D Total 46.8 NG/ML (30.0-100.0) 11/05/17 12:00 TSH 3rd Generation 3.04 mIU/mL (0.46-4.68) 11/05/17 12:00 Urine Color Yellow (YELLOW) 11/04/17 20:41 Urine Appearance Sl cloudy (CLEAR) 11/04/17 20:41 Urine pH 7.0 (4.7-8.0) 11/04/17 20:41 Ur Specific [place] 1.015 (1.005-1.035) 11/04/17 20:41 Urine Protein Negative mg/dL (<30 mg/dL) 11/04/17 20:41 Urine Glucose (UA) Negative mg/dL (NEGATIVE) 11/04/17 20:41 Urine Ketones Negative mg/dL (NEGATIVE) 11/04/17 20:41 Urine Blood Negative (NEGATIVE) 11/04/17 20:41 Urine Nitrate Negative (NEGATIVE) 11/04/17 20:41 Urine Bilirubin Negative (NEGATIVE) 11/04/17 20:41 Urine Urobilinogen 0.2 E.U./dL (<1 E.U./dL) 11/04/17 20:41 Ur Leukocyte Esterase Moderate Carlos/uL (NEGATIVE) H 11/04/17 20:41 Urine RBC Negative /hpf (0-2) 11/04/17 20:41 Urine WBC 15 - 20 /hpf (0-6) 11/04/17 20:41 Ur Epithelial Cells 10 - 12 /hpf (0-5) 11/04/17 20:41 Urine Bacteria Mod (NEG) 11/04/17 20:41 - Hospital Course Hospital Course: 87 year old female with a past medical history of [place] x2(1992 and 2007), Pulmonary embolus( on Coumadin), DVT, and nephrolithiasis who comes in today complaining of dizziness that began this afternoon around 4 p.m. The patient went for a check-up at Dr. Mccray's office and then returned home when she began to feel dizzy. She describes the sensation as feeling like she would lose her balance when walking. She also admits to the dizziness being more pronounced upon walking to the restroom. She reports also having some chest pain in association with the dizziness. It located on the left side of her chest with some radiation to the mid back. She describes it as a throbbing pain and rates it 5/10 when she has symptoms. [place] [facility] [place] and chest pain. Patient's orthostatic vital signs were positive with nystagmus seen on exam. Patient's symptoms improved with meclizine, valium. Physical therapy worked with patient as well, recommended outpatient vestibular rehab. Patient also found to have UTI, treated with 2 days of IV rocephin. Patient's EKG and trops negative x3. Patient's TSH, vitamin B12, vitamin D all normal. CTA head/neck shows 50% calcified atheroscleotic plaques in proximal R ICA, right thryoid lobe nodule 3 cm. Previous records reviewed with patient and chart, which shows multiple thyroid nodules on prior US. Patient states that she is being followed by [facility] outpatient, as well as monitored by Dr Brooke. Patient discharged home, and instructed to follow up as per discharge instructions. Case seen and discussed with Dr Nicholson. Mely Tovar, pGY1 Discharge Exam - Head Exam Head Exam: ATRAUMATIC, NORMOCEPHALIC Discharge Plan - Discharge Medications Prescriptions: diaZEpam [Valium] 2 mg PO Q12 PRN #6 tab PRN Reason: Dizziness - Follow Up Plan Condition: STABLE Disposition: HOME/ ROUTINE Instructions: Vertigo (a Type of Dizziness), Heart Healthy Diet, Vertigo (a Type of Dizziness) (DC) Additional Instructions: - Please follow up with your primary care doctor and Dr Story in 1 week - Take the Valium as needed for dizziness - Continue with your home Coumadin, lipitor, ASA - Your BP dropped when you stand from lying position, so please when you try to get out of bed, sit up from lying position for at least 5 minutes, before attempting to stand up. Keep your self hydrated, and eat a balanced meal diet. - Outpatient Physical therapy: vestibular rehab - Your right thyroid nodule is noted, please follow up with your record press operator , Dr Baker. - Return to ER for any concerns. Referrals: Miguelina Harmon MD [Primary Care Provider] - <Samantha Nicholson - Last Filed: 11/06/17 15:00> Provider - Provider Date of Admission: 11/05/17 14:46 Attending physician: Samantha Nicholson MD Primary care physician: Miguelina Baker MD Hospital Course - Lab Results Lab Results: Most Recent Lab Values WBC 4.9 10^3/ul (4.5-11.0) 11/06/17 06:00 RBC 4.49 10^6/uL (3.5-6.1) 11/06/17 06:00 Hgb 12.9 g/dL (12.0-16.0) 11/06/17 06:00 Hct 38.3 % (36.0-48.0) 11/06/17 06:00 MCV 85.3 fl (80.0-105.0) 11/06/17 06:00 MCH 28.7 pg (25.0-35.0) 11/06/17 06:00 MCHC 33.7 g/dl (31.0-37.0) 11/06/17 06:00 RDW 12.9 % (11.5-14.5) 11/06/17 06:00 Plt Count 204 10^3/uL (120.0-450.0) 11/06/17 06:00 MPV 10.7 fl (7.0-11.0) 11/06/17 06:00 Gran % 62.2 % (50.0-68.0) 11/06/17 06:00 Lymph % (Auto) 28.0 % (22.0-35.0) 11/06/17 06:00 [place] % (Auto) 8.2 % (1.0-6.0) H 11/06/17 06:00 Eos % (Auto) 1.4 % (1.5-5.0) L 11/06/17 06:00 Baso % (Auto) 0.2 % (0.0-3.0) 11/06/17 06:00 Gran # 3.02 (1.4-6.5) 11/06/17 06:00 Lymph # (Auto) 1.4 (1.2-3.4) 11/06/17 06:00 [place] # (Auto) 0.4 (0.1-0.6) 11/06/17 06:00 Eos # (Auto) 0.1 (0.0-0.7) 11/06/17 06:00 Baso # (Auto) 0.01 K/mm3 (0.0-2.0) 11/06/17 06:00 PT 28.4 SECONDS (9.4-12.5) H 11/06/17 06:00 INR 2.43 (0.93-1.08) H 11/06/17 06:00 APTT 34.1 Seconds (25.1-36.5) 11/04/17 20:00 Sodium 144 mmol/L (132-148) 11/06/17 06:00 Potassium 4.0 mmol/L (3.6-5.0) 11/06/17 06:00 Chloride 107 mmol/L (98-107) 11/06/17 06:00 Carbon Dioxide 29 mmol/L (21-33) 11/06/17 06:00 Anion Gap 12 (10-20) 11/06/17 06:00 BUN 13 mg/dL (7-21) 11/06/17 06:00 Creatinine 0.8 mg/dl (0.7-1.2) 11/06/17 06:00 Est GFR ( Amer) > 60 11/06/17 06:00 Est GFR (Non-Af Amer) > 60 11/06/17 06:00 Random Glucose 89 mg/dL (70-110) 11/06/17 06:00 Hemoglobin A1c 5.7 % (4.2-6.5) 11/05/17 06:00 Calcium 8.7 mg/dL (8.4-10.5) 11/06/17 06:00 Phosphorus 2.8 mg/dL (2.5-4.5) 11/05/17 06:00 Magnesium 2.1 mg/dL (1.7-2.2) 11/05/17 06:00 Total Bilirubin 0.5 mg/dL (0.2-1.3) 11/06/17 06:00 AST 22 U/L (14-36) 11/06/17 06:00 ALT 17 U/L (7-56) 11/06/17 06:00 Alkaline Phosphatase 61 U/L (38-126) 11/06/17 06:00 Lactate Dehydrogenase 590 U/L (333-699) 11/04/17 20:00 Total Creatine Kinase 61 U/L (35-230) 11/04/17 20:00 Troponin I < 0.01 ng/mL 11/05/17 07:50 NT-Pro-B Natriuret Pep 94.4 pg/mL (0-450) 11/04/17 20:00 Total Protein 6.3 g/dL (5.8-8.3) 11/06/17 06:00 Albumin 3.5 g/dL (3.0-4.8) 11/06/17 06:00 Globulin 2.7 gm/dL 11/06/17 06:00 Albumin/Globulin Ratio 1.3 (1.1-1.8) 11/06/17 06:00 Triglycerides 120 mg/dL (35-160) 11/05/17 06:00 Cholesterol 167 mg/dL (130-200) 11/05/17 06:00 LDL Cholesterol Direct 90 mg/dL (0-129) 11/05/17 06:00 HDL Cholesterol 39 mg/dL (29-60) 11/05/17 06:00 Vitamin B12 364 pg/mL (239-931) 11/05/17 12:00 25-OH Vitamin D Total 46.8 NG/ML (30.0-100.0) 11/05/17 12:00 TSH 3rd Generation 3.04 mIU/mL (0.46-4.68) 11/05/17 12:00 Urine Color Yellow (YELLOW) 11/04/17 20:41 Urine Appearance Sl cloudy (CLEAR) 11/04/17 20:41 Urine pH 7.0 (4.7-8.0) 11/04/17 20:41 Ur Specific [place] 1.015 (1.005-1.035) 11/04/17 20:41 Urine Protein Negative mg/dL (<30 mg/dL) 11/04/17 20:41 Urine Glucose (UA) Negative mg/dL (NEGATIVE) 11/04/17 20:41 Urine Ketones Negative mg/dL (NEGATIVE) 11/04/17 20:41 Urine Blood Negative (NEGATIVE) 11/04/17 20:41 Urine Nitrate Negative (NEGATIVE) 11/04/17 20:41 Urine Bilirubin Negative (NEGATIVE) 11/04/17 20:41 Urine Urobilinogen 0.2 E.U./dL (<1 E.U./dL) 11/04/17 20:41 Ur Leukocyte Esterase Moderate Carlos/uL (NEGATIVE) H 11/04/17 20:41 Urine RBC Negative /hpf (0-2) 11/04/17 20:41 Urine WBC 15 - 20 /hpf (0-6) 11/04/17 20:41 Ur Epithelial Cells 10 - 12 /hpf (0-5) 11/04/17 20:41 Urine Bacteria Mod (NEG) 11/04/17 20:41 Attending/Attestation - Attestation I have personally seen and examined this patient.: Yes I have fully participated in the care of the patient.: Yes I have reviewed all pertinent clinical information, including history, physical exam and plan: Yes Notes (Text): 11/06/17 14:55 Attending note; Patient seen and examined with the resident. Patient is a 87 year old female with a past medical history of [place] x2(1992 and 2007), Pulmonary embolus (on Coumadin), DVT, and nephrolithiasis, admitted for dizziness and chest pain. Currently patient is pain-free. Cardiac enzymes negative. Cardiology evaluation appreciated. Patient with dizziness; started on meclizine. Valium prn ordered. CT head is negative. Neurology evaluation appreciated. Physical therapy evaluation appreciated. Prescription for outpatient vestibular therapy given. On Coumadin for history pulmonary embolus; INR is therapeutic. Case discussed with PMD in detail. discharge home today. Upon discharge the patient will follow-up with PMD .
[2017-11-06 12:12] VITALS: BP 135/70; PULSE 54; TEMP 98.3
--- NOTE | 2017-11-06 12:13 | CP.PCM.PN ---
Subjective - Date & Time of Evaluation Date of Evaluation: 11/06/17 Time of Evaluation: 12:10 - Subjective Subjective: Ms. valencia was seen and examined at the bedside. She is alert, oriented and claims of her dizziness is much improved. She denies any headache, weakness , nausea, or vomiting. She is able to follow commands and feed herself independently. Educated patient regarding disease entity and treatment plan, verbalizes understanding. There was no untoward events overnight. Objective - Vital Signs/Intake and Output Vital Signs (last 24 hours): Temp Pulse Resp BP Pulse Ox 98.1 F 52 L 20 117/53 L 96 11/06/17 00:01 11/06/17 04:28 11/06/17 00:01 11/06/17 00:01 11/06/17 00:01 Intake and Output: 11/06/17 11/06/17 06:59 18:59 Intake Total 1140 Output Total 800 Balance 340 - Medications Medications: Current Medications Aspirin (Ecotrin) 81 mg PO DAILY [facility] Last Admin: 11/06/17 10:37 Dose: 81 mg Atorvastatin Calcium (Lipitor) 20 mg PO DIN MARTI Cefpodoxime Proxetil (Vantin) 200 mg PO Q12 [facility] Stop: 11/08/17 10:01 Cyclosporine (Restasis) 0 ea OU Q12H [facility] Last Admin: 11/06/17 10:41 Dose: 1 ea Diazepam (Valium) 2 mg PO Q12 [facility] PRN Reason: Protocol Last Admin: 11/05/17 21:29 Dose: Not Given Home Med (Home Med) 1 unit OU HS [facility] Last Admin: 11/05/17 21:28 Dose: 1 unit Pantoprazole Sodium (Protonix Ec Tab) 40 mg PO ACB [facility] Last Admin: 11/06/17 07:56 Dose: 40 mg Warfarin Sodium (Coumadin) 5 mg PO DAILY [facility] PRN Reason: Protocol Last Admin: 11/06/17 10:37 Dose: 5 mg - Labs Labs: 11/06/17 06:00 11/06/17 06:00 PT 28.4 SECONDS (9.4-12.5) H 11/06/17 06:00 INR 2.43 (0.93-1.08) H 11/06/17 06:00 APTT 34.1 Seconds (25.1-36.5) 11/04/17 20:00 - Constitutional Appears: No Acute Distress - Head Exam Head Exam: NORMAL INSPECTION - Neurological Exam Neurological Exam: Alert, Awake, Oriented x3 Neuro motor strength exam: Left Upper Extremity: 5, Right Upper Extremity: 5, Left Lower Extremity: 5, Right Lower Extremity: 5 Additional comments: alert, oriented, follows commands, sensation intact Assessment and Plan (1) Vertigo Assessment & Plan: Case discussed with Dr. Story, continue all current medical and physical regimen. Recommend hydration, vestibular rehab, follow up with Dr. Osullivan. May discharge patient home when stable and cleared by primary team. Status: Acute
--- NOTE | 2017-11-07 09:17 | CARD ---
APPROVED REPORT EXAM: Two-dimensional and M-mode echocardiogram with Doppler and color Doppler. INDICATION DIZZINESS 2D DIMENSIONS Left Atrium (2D)3.4 (1.6-4.0cm)IVSd1.0 (0.7-1.1cm) LVDd4.7 (3.9-5.9cm)PWd1.1 (0.7-1.1cm) LVDs3.3 (2.5-4.0cm)FS (%) 31.3 % LVEF (%)59.1 (>50%) M-Mode DIMENSIONS Aortic Root2.40 (2.2-3.7cm)Aortic Cusp Exc.1.40 (1.5-2.0cm) Aortic Valve AoV Peak Xwklomoz766.0cm/Meir Peak GR.7mmHg Mitral Valve MV E Lmfmytnl95.8cm/sMV A Eiazhtpx55.5cm/sE/A ratio1.0 TDI E/Lateral E'0.0E/Medial E'0.0 Tricuspid Valve TR Peak Pmxodneh555ks/sRAP [id number] Peak Gr.19mmHg [id number] LEFT VENTRICLE The left ventricle is normal size. There is normal left ventricular wall thickness. The left ventricular function is normal. The left ventricular ejection fraction is within the normal range. There is normal LV segmental wall motion. RIGHT VENTRICLE The right ventricle is normal size. The right ventricular systolic function is normal. ATRIA The left atrium size is normal. The right atrium size is normal. The interatrial septum is intact with no evidence for an atrial septal defect. AORTIC VALVE The aortic valve is mildly sclerotic. There is mild aortic regurgitation. There is no aortic valvular stenosis. MITRAL VALVE The mitral valve is normal in structure. Mitral regurgitation is mild. TRICUSPID VALVE The tricuspid valve is normal in structure. There is mild tricuspid regurgitation. GREAT VESSELS The aortic root is normal in size. The IVC is normal in size and collapses >50% with inspiration. PERICARDIAL EFFUSION There is no pleural effusion. There is no pericardial effusion. <Conclusion> Normal chamber size. Normal LV systolic function. Mild MR, TR and AI.
[2017-11-07] MEDS ORDERED: Cefpodoxime (Vantin) 200 mg Tab PO SCH (10:00)
== END 2017-11-06 14:35 | disposition home or self-care (01) | DRG 312 ==
LOC: ED 18:55 → ERH 21:57 → 2RNO 22:42 → OBSVTOIN 11-05 14:46 → INTOOBSV 11-05 14:46
PROVIDERS: ADMIT Internal Medicine; ATTEND Internal Medicine
DX: I95.1 Orthostatic hypotension (principal); N39.0 Urinary tract infection, site not specified; I10 Essential (primary) hypertension; I25.10 Atherosclerotic heart disease of native coronary artery without angina pectoris; K21.9 Gastro-esophageal reflux disease without esophagitis; H93.3X9 Disorders of unspecified acoustic nerve; E04.2 Nontoxic multinodular goiter; I25.2 Old myocardial infarction; Z87.442 Personal history of urinary calculi; Z86.711 Personal history of pulmonary embolism; Z86.718 Personal history of other venous thrombosis and embolism; Z79.01 Long term (current) use of anticoagulants; Z87.891 Personal history of nicotine dependence

== ENCOUNTER 2018-06-17 07:53 | Outpatient (CLI) | payer MEDICARE | END 2018-06-17 07:54 | disposition home or self-care (01) | LOC: LAB 07:53 ==

== ENCOUNTER 2018-08-07 07:50 | Outpatient (CLI) | payer MEDICARE | END 2018-08-07 07:51 | disposition home or self-care (01) | LOC: RAD 07:50 | DX: E04.2 Nontoxic multinodular goiter (principal) ==